=== PATIENT | male | born 1960 | race Two or more races ===

== ENCOUNTER → 2017-07-25 | Outpatient (CLI) | payer BC | LOC: BMCIMAGING 10:37 | PROVIDERS: ATTEND Psychiatry & Neurology Neurology | DX: M54.5 Low back pain (principal); M54.2 Cervicalgia; M50.30 Other cervical disc degeneration, unspecified cervical region; M51.26 Other intervertebral disc displacement, lumbar region; M25.78 Osteophyte, vertebrae ==